=== PATIENT | female | born 1990 | race American Indian/Alaskan Native ===

== ENCOUNTER 2019-03-17 15:00 | Emergency (ER) | payer SELFPAY ==
--- NOTE | 2019-03-17 15:33 | Emergency Department Report ---
Blank Doc - Documentation Documentation: This is a 29-year-old female that presents with URI symptoms., cough and sore throat. This initial assessment/diagnostic orders/clinical plan/treatment(s) is/are subject to change based on patient's health status, clinical progression and re- assessment by fellow clinical providers in the ED. Further treatment and workup at subsequent clinical providers discretion. Patient/guardians urged not to elope from the ED as their condition may be serious if not clinically assessed and managed. Initial orders include: 1- Patient sent to [facility] for further evaluation and treatment 2- CXR
--- NOTE | 2019-03-17 16:35 | XRay Report ---
CHEST 2 VIEWS INDICATION / CLINICAL INFORMATION: cough. COMPARISON: None available. FINDINGS: SUPPORT DEVICES: None. HEART / MEDIASTINUM: No significant abnormality. LUNGS / PLEURA: No significant pulmonary or pleural abnormality. No pneumothorax. ADDITIONAL FINDINGS: No significant additional findings. IMPRESSION: 1. No acute findings. Signer Name: Olivier Gorman MD Signed: 03/17/2019 4:31 PM Workstation Name: [id number]
[2019-03-17] MEDS ORDERED: DELTASONE PO ONE (18:45)
[2019-03-17] MEDS ORDERED: PEPCID PO ONE (18:45)
[2019-03-17] MEDS ORDERED: IBUPROFEN PO ONE (18:45)
--- NOTE | 2019-03-17 18:48 | Emergency Department Report ---
- General Chief Complaint: Upper Respiratory Infection Stated Complaint: THROAT PAIN/FATIGUE/HEADACHE Time Seen by Provider: 03/17/19 15:32 Source: patient Mode of arrival: Ambulatory Limitations: No Limitations - History of Present Illness Initial Comments: Patient is a 29-year-old female history of recurring sinusitis who presents for sinus pressure sore throat and ear pain 3 days with yellow-green postnasal drip and cough patient denies wheezing does endorse nocturnal fever symptoms are exacerbated by position or lying down patient has not taken [id number] antihistamine MD Complaint: fever, sore throat, rhinorrhea, nasal congestion, sinus pain Onset/Timin -: week(s) Severity: moderate Severity scale (0 -10): 5 Quality: sharp, aching Consistency: constant Improves With: nothing Worsens With: activity Associated Symptoms: fever, chills, rhinorrhea, nasal congestion, sore throat, nausea, ear pain Treatments Prior to Arrival: none - Related Data Previous Rx's Medication Instructions Recorded Last Taken Type Amoxicillin/Potassium Clav 1 each PO BID 10 Days #20 tablet 03/17/19 Unknown Rx [Augmentin 875-125 Tablet] Famotidine [Pepcid] 20 mg PO BID #60 tablet 03/17/19 Unknown Rx Ibuprofen [Motrin 800 MG tab] 800 mg PO Q8HR PRN #30 tablet 03/17/19 Unknown Rx diphenhydrAMINE [Benadryl CAP] 25 mg PO Q6HR PRN #30 capsule 03/17/19 Unknown Rx predniSONE [Deltasone] 40 mg PO QDAY 5 Days #10 tab 03/17/19 Unknown Rx Allergies Allergy/AdvReac Type Severity Reaction Status Date / Time No Known Allergies Allergy Unverified 03/17/19 15:36 ED Review of Systems ROS: Stated complaint: THROAT PAIN/FATIGUE/HEADACHE Other details as noted in HPI Constitutional: chills, fever, malaise Eyes: denies: eye pain, eye discharge, vision change ENT: ear pain, throat pain, congestion Respiratory: cough. denies: shortness of breath, wheezing Cardiovascular: denies: chest pain, palpitations Endocrine: no symptoms reported Gastrointestinal: denies: abdominal pain, nausea, vomiting, diarrhea Genitourinary: denies: urgency, dysuria, discharge Musculoskeletal: denies: back pain, joint swelling, arthralgia Skin: denies: rash, lesions Neurological: denies: headache, weakness, paresthesias Psychiatric: denies: anxiety, depression Hematological/Lymphatic: denies: easy bleeding, easy bruising ED Past Medical Hx - Past Medical History Previous Medical History?: No - Surgical History Past Surgical History?: No - Social History Smoking Status: Never Smoker Substance Use Type: None - Medications Home Medications: Home Medications Medication Instructions Recorded Confirmed Last Taken Type Amoxicillin/Potassium Clav 1 each PO BID 10 Days #20 tablet 03/17/19 Unknown Rx [Augmentin 875-125 Tablet] Famotidine [Pepcid] 20 mg PO BID #60 tablet 03/17/19 Unknown Rx Ibuprofen [Motrin 800 MG tab] 800 mg PO Q8HR PRN #30 tablet 03/17/19 Unknown Rx diphenhydrAMINE [Benadryl CAP] 25 mg PO Q6HR PRN #30 capsule 03/17/19 Unknown Rx predniSONE [Deltasone] 40 mg PO QDAY 5 Days #10 tab 03/17/19 Unknown Rx ED Physical Exam - General Limitations: No Limitations General appearance: alert, in no apparent distress - Head Head exam: Present: atraumatic, normocephalic - Eye Eye exam: Present: normal appearance, PERRL, EOMI. Absent: conjunctival injection, nystagmus Pupils: Present: normal accommodation - ENT ENT exam: Present: mucous membranes moist, normal external ear exam - Expanded ENT Exam Expanded Ear exam: Present: normal external inspection, other (bilat frontal and maxillary sinus pain to palpation ) TM/Canal exam: Erythema: Right TM, Left TM Mouth exam: Absent: trismus Throat exam: Positive: tonsillar erythema, tonsillomegaly, tonsillar exudate, other (uvula midline no swelling pos lesions ). Negative: R peritonsillar mass, L peritonsillar mass - Neck Neck exam: Present: normal inspection, tenderness, full ROM, lymphadenopathy. Absent: meningismus, thyromegaly - Expanded Neck Exam Expanded Neck exam: Present: tenderness. Absent: midline deformity, anterior neck swelling, thyroid mass, carotid bruit, tracheal deviation - Respiratory Respiratory exam: Present: normal lung sounds bilaterally. Absent: respiratory distress, wheezes, rales, rhonchi, stridor, chest wall tenderness - Cardiovascular Cardiovascular Exam: Present: regular rate, normal rhythm, normal heart sounds. Absent: systolic murmur, diastolic murmur, rubs, gallop - GI/Abdominal GI/Abdominal exam: Present: soft, normal bowel sounds. Absent: distended, tenderness, bruit, hernia - Rectal Rectal exam: Present: deferred - Extremities Exam Extremities exam: Present: normal inspection, full ROM, normal capillary refill. Absent: tenderness, joint swelling, calf tenderness - Back Exam Back exam: Present: normal inspection, full ROM. Absent: tenderness, CVA tenderness (R), CVA tenderness (L), muscle spasm, paraspinal tenderness, rash noted - Neurological Exam Neurological exam: Present: alert, oriented X3, CN II-XII intact, normal gait, reflexes normal. Absent: motor sensory deficit - Psychiatric Psychiatric exam: Present: normal affect, normal mood - Skin Skin exam: Present: warm, dry, intact, normal color. Absent: rash ED Course Vital Signs 03/17/19 15:35 Temperature 98.2 F Pulse Rate 85 Respiratory 18 Rate Blood Pressure 118/52 O2 Sat by Pulse 100 Oximetry ED Medical Decision Making - Radiology Data Radiology results: report reviewed, image reviewed Ordering Physician: ANTONIO AMBROSE NP Date of Service: 03/17/19 Procedure(s): XR chest routine 2V Accession Number(s): [id number] cc: ANTONIO AMBROSE NP Fluoro Time In Minutes: CHEST 2 VIEWS INDICATION / CLINICAL INFORMATION: cough. COMPARISON: None available. FINDINGS: SUPPORT DEVICES: None. HEART / MEDIASTINUM: No significant abnormality. LUNGS / PLEURA: No significant pulmonary or pleural abnormality. No pneumothorax. ADDITIONAL FINDINGS: No significant additional findings. IMPRESSION: 1. No acute findings. Signer Name: Olivier Gorman MD Signed: 03/17/2019 4:31 PM Workstation Name: [id number] Transcribed By: EDUIN Dictated By: Olivier Gorman MD Electronically Authenticated By: Olivier Gorman MD Signed Date/Time: 03/17/19 1631 DD/ 1630 TD/TT: - Medical Decision Making this is sinusitis , plan augmentin, prednisone, benadryl, ibuprofen follow up with pcp in 2-3 days pt verbalized agreement and understansding of discharge plan. Critical care attestation.: If time is entered above; I have spent that time in minutes in the direct care of this critically ill patient, excluding procedure time. ED Disposition Clinical Impression: Sinusitis Qualifiers: Sinusitis location: maxillary Chronicity: acute Recurrence: recurrent Qualified Code(s): J01.01 - Acute recurrent maxillary sinusitis Disposition: TO HOME OR SELFCARE Is pt being admited?: No Does the pt Need Aspirin: No Condition: Stable Instructions: Sinusitis (ED) Prescriptions: Amoxicillin/Potassium Clav [Augmentin 875-125 Tablet] 1 each PO BID 10 Days #20 tablet diphenhydrAMINE [Benadryl CAP] 25 mg PO Q6HR PRN #30 capsule PRN Reason: Congestion predniSONE [Deltasone] 40 mg PO QDAY 5 Days #10 tab Ibuprofen [Motrin 800 MG tab] 800 mg PO Q8HR PRN #30 tablet PRN Reason: pain fever Famotidine [Pepcid] 20 mg PO BID #60 tablet Referrals: DAIJA MARINO MD [Primary Care Provider] - 3-5 Days Forms: Work/School Release Form(ED) Time of Disposition: 18:55
[2019-03-17 19:16] VITALS: BP 100/65
== END 2019-03-17 19:15 | disposition home or self-care (01) ==
LOC: ED 15:00
DX: J01.01 Acute recurrent maxillary sinusitis (principal)
CPT/HCPCS: 71046; 87116; 87430; 99284; J7512